=== PATIENT | male | born 1960 | race Caucasian/White ===

== ENCOUNTER 2019-12-17 18:50 | Emergency (ER) | payer BC ==
[~2019-12-17] VITALS: Ht 188 cm; Wt 84.1 kg
[~2019-12-17 18:50] MED LIST: DOXYCYCLINE 10100 MG PO
[2019-12-17 19:20] VITALS: TEMP 98.3
[2019-12-17] MEDS ORDERED: NEURONTIN100 MG/CAP PO (19:49)
[2019-12-17] MEDS ORDERED: EFFEXOR 75M75 MG/TAB PO (19:49)
[2019-12-17] MEDS ORDERED: NORCO 325 MG-51 TAB PO (21:14)
[2019-12-17 21:32] VITALS: BP 141/70; PULSE 68
== END 2019-12-17 21:32 | disposition home or self-care (01) ==
LOC: COL.ER 18:50
DX: S42.032A Displaced fracture of lateral end of left clavicle, initial encounter for closed fracture (principal); S60.512A Abrasion of left hand, initial encounter; V19.9XXA Pedal cyclist (driver) (passenger) injured in unspecified traffic accident, initial encounter